=== PATIENT | female | born 1955 | race Asian ===

== ENCOUNTER 2022-07-23 12:56 | Outpatient (CLI) | payer MEDICARE | END 2022-07-23 12:57 | disposition home or self-care (01) | LOC: CSHULT 12:56 | PROVIDERS: ATTEND Internal Medicine | DX: R01.1 Cardiac murmur, unspecified (principal); R93.1 Abnormal findings on diagnostic imaging of heart and coronary circulation | CPT/HCPCS: 93306 ==

== ENCOUNTER 2022-07-31 13:00 | Outpatient (CLI) | payer MEDICARE | END 2022-07-31 13:01 | disposition home or self-care (01) | LOC: CSHMAMMO 13:00 | PROVIDERS: ATTEND Internal Medicine | DX: Z12.31 Encounter for screening mammogram for malignant neoplasm of breast (principal) | CPT/HCPCS: 77063; 77067 ==

== ENCOUNTER 2024-07-13 09:11 | Outpatient (CLI) | payer MEDICARE | END 2024-07-13 09:12 | disposition home or self-care (01) | LOC: CSHMAMMO 09:11 | PROVIDERS: ATTEND Internal Medicine | DX: Z12.31 Encounter for screening mammogram for malignant neoplasm of breast (principal); Z78.0 Asymptomatic menopausal state; M81.0 Age-related osteoporosis without current pathological fracture | CPT/HCPCS: 77063; 77067; 77080 ==